=== PATIENT | male | born 1970 | race Two or more races ===

== ENCOUNTER 2017-01-29 11:38 | Emergency (ER) | payer OTHER, SELFPAY ==
[~2017-01-29] VITALS: Ht 170.2 cm; Wt 78.3 kg
[2017-01-29] MEDS ORDERED: MORPHINE SULFATE 4 MG/ML, 1ML ONE (12:46)
[2017-01-29] MEDS ORDERED: ONDANSETRON 2MG/ML, 2ML ONE (12:47)
[2017-01-29] MEDS ORDERED: KETOROLAC 30 MG/1 ML ONE (12:47)
[2017-01-29] MEDS ORDERED: SODIUM CHLORIDE FLUSH 10ML SYR IVF ONE (13:00)
[2017-01-29] MEDS ORDERED: MORPHINE SULFATE 4 MG/ML, 1ML IVPush PRN (13:00)
[2017-01-29] MEDS ORDERED: SODIUM CHLORIDE 0.9% 1,000ML IVBOLUS ONE (13:00)
[2017-01-29] MEDS ORDERED: KETOROLAC 30 MG/1 ML IVPush ONE (13:00)
[2017-01-29] MEDS ORDERED: ONDANSETRON 2MG/ML, 2ML IVPush ONE (13:00)
[2017-01-29 13:02] LABS: ASPARTATE AMINO TRANSFERASE 11 U/L (15-37); BLOOD UREA NITROGEN 19 mg/dL (7-18)
[2017-01-29 14:15] LABS: PATH.CAST-FLAG NOT PRESENT; SPERM-FLAG NOT PRESENT; SRC-FLAG NOT PRESENT; XTAL-FLAG NOT PRESENT; YLC-FLAG NOT PRESENT
[2017-01-29 15:48] VITALS: BP 107/67
== END 2017-01-29 15:50 | disposition home or self-care (01) ==
LOC: ED 15:00
DX: R10.84 Generalized abdominal pain (principal)
CPT/HCPCS: 36415; 74176; 80053; 81001; 83690; 85025; 96361; 96374; 96375; 99285; J1885; J2405; J7030

== ENCOUNTER → 2018-12-10 | Outpatient (CLI) | payer OTHER ==
[~2018-12-10] MED LIST: MELO15TA24 PO; TIZA4TAB PO
[2018-12-10 09:37] LABS: BASOPHILS # (AUTO) 0.02 x10^3/uL (0-0.1); BASOPHILS % (AUTO) 1 % (0-1); EOSINOPHILS # (AUTO) 0.26 x10^3/uL (0-0.4); EOSINOPHILS % (AUTO) 7 % (1-7); LYMPHOCYTES % (AUTO) 8 % (22-44); MD NO; MEAN CORPUSCULAR HEMOGLOBIN 31.6 pg (27.5-34.5); MEAN CORPUSCULAR HGB CONC 34.8 g/dL (33.2-36.2); MEAN CORPUSCULAR VOLUME 90.9 fL (81-97); MEAN PLATELET VOLUME 7.3 fL (7.4-10.4); MONOCYTES % (AUTO) 5 % (2-9); NEUTROPHILS # (AUTO) 2.98 x10^3/uL (1.8-6.8); NEUTROPHILS % (AUTO) 80 % (42-75); PLATELET COUNT 181 x10^3/uL (130-400); RED BLOOD COUNT 4.86 x10^6/uL (4.38-5.82); RED CELL DISTRIBUTION WIDTH 12.4 % (9.4-14.8)
[2018-12-10 09:47] LABS: INTERNATIONAL NORMALIZED RATIO 0.96 (0.93-1.1); PROTHROMBIN TIME 10.1 Seconds (9.6-11.5)
[2018-12-10 09:49] LABS: ANION GAP 4 mmol/L (5-15); CHLORIDE 109 mmol/L (98-107); CREATININE 0.97 mg/dL (0.7-1.3)
== END | disposition home or self-care (01) ==
LOC: STAR 08:35
PROVIDERS: ATTEND Neurological Surgery
DX: Z01.818 Encounter for other preprocedural examination (principal); M51.26 Other intervertebral disc displacement, lumbar region; M48.061 Spinal stenosis, lumbar region without neurogenic claudication; M51.36 Other intervertebral disc degeneration, lumbar region
CPT/HCPCS: 36415; 71046; 72110; 80048; 85025; 85610; 85730; 93005

== ENCOUNTER 2018-12-17 08:38 | Inpatient (IN) | payer OTHER ==
[~2018-12-17] VITALS: Ht 170.2 cm; Wt 82.5 kg
[~2018-12-17 08:38] MED LIST changes: +BACITRACIN 50,000 UNIT ONE; +BACITRACIN OINT 500U/GM, 15 GM ONE; +BUPIVACAINE/PF-EPI 0.5% 1:200K ONE; +THROMBIN 20,000 UNIT VIAL TP ONE
[2018-12-17] MEDS ORDERED: LACTATED RINGERS 1,000 ML IV SCH (13:01)
[2018-12-17 13:02] VITALS: BP 125/84
[2018-12-17] MEDS ORDERED: THROMBIN 5,000 UNIT VIAL TP ONE (13:37)
[2018-12-17] MEDS ORDERED: CALCIUM CHLORIDE 10%, 10ML SYR ONE (13:37)
[2018-12-17] MEDS ORDERED: MIDAZOLAM 1 MG/ML, 2ML ONE (14:12)
[2018-12-17] MEDS ORDERED: FENTANYL PF 250 MCG/5ML ONE (14:12)
[2018-12-17] MEDS ORDERED: ONDANSETRON 2MG/ML, 2ML ONE (14:58)
[2018-12-17] MEDS ORDERED: GABAPENTIN 300 MG CAPSULE PO ONE ×2 (15:00→15:30)
[2018-12-17] MEDS ORDERED: FAMOTIDINE 20 MG TABLET PO ONE (15:00)
[2018-12-17] MEDS ORDERED: ACETAMINOPHEN 500 MG TABLET PO ONE (15:00)
[2018-12-17] MEDS ORDERED: OxyconTIN ER 20 MG TAB.ER PO ONE (15:00)
[2018-12-17] MEDS ORDERED: DEXAMETHASONE 4 MG/ML, 1ML ONE (15:05)
[2018-12-17] MEDS ORDERED: CEFAZOLIN 1,000 MG ONE ×2 (15:06)
[2018-12-17] MEDS ORDERED: PROMETHAZINE 25 MG/ML, 1ML IV PRN (16:30)
[2018-12-17] MEDS ORDERED: OXYcodone 5 MG/5 ML ORAL.SOL UDC PO PRN (16:30)
[2018-12-17] MEDS ORDERED: MEPERIDINE/PF 25MG/0.5ML IVPush PRN (16:30)
[2018-12-17] MEDS ORDERED: hydrALAzine 20 MG/ML, 1ML IV PRN (16:30)
[2018-12-17] MEDS ORDERED: ONDANSETRON 2MG/ML, 2ML IV PRN ×2 (16:30→20:30)
[2018-12-17] MEDS ORDERED: LABETALOL 5MG/ML, 20ML IV PRN (16:30)
[2018-12-17] MEDS ORDERED: SUCCINYLCHOLINE 20 MG/ML, 10ML ONE (16:44)
[2018-12-17] MEDS ORDERED: PROPOFOL 10 MG/ML, 20ML ONE (16:44)
[2018-12-17] MEDS ORDERED: ROCURONIUM 10MG/ML,5ML ONE (16:44)
[2018-12-17] MEDS ORDERED: FENTANYL PF 100 MCG/2ML ONE ×2 (17:31→17:59)
[2018-12-17] MEDS ORDERED: HYDROmorphone 2 MG/ML, 1ML ONE (17:31)
[2018-12-17] MEDS: FENTANYL PF 100 MCG/2ML IV PRN ×4 (17:33→18:12)
[2018-12-17] MEDS: HYDROmorphone 2 MG/ML, 1ML IVPush PRN ×4 (17:37→18:07)
[2018-12-17 19:42] VITALS: BP 114/69
[2018-12-17] MEDS ORDERED: HYDROcodone/APAP 5/325 TABLET PO PRN (20:30)
[2018-12-17] MEDS ORDERED: DIPHENHYDRAMINE 50 MG/ML, 1ML IM PRN (20:30)
[2018-12-17] MEDS ORDERED: CYCLOBENZAPRINE 10 MG TABLET PO PRN (20:30)
[2018-12-17] MEDS ORDERED: DIPHENHYDRAMINE 50 MG/ML, 1ML IVPush PRN (20:30)
[2018-12-17] MEDS ORDERED: METHOCARBAMOL 750 MG TABLET PO PRN (20:30)
[2018-12-17] MEDS ORDERED: BISACODYL 10 MG SUPP PR PRN (20:30)
[2018-12-17] MEDS ORDERED: HYDROmorphone 2 MG/ML, 1ML IM PRN (20:30)
[2018-12-17] MEDS ORDERED: MAGNESIUM HYDROXIDE 8%, 30ML UDC PO PRN (20:30)
[2018-12-17] MEDS ORDERED: DIPHENHYDRAMINE 50 MG CAPSULE PO PRN (20:30)
[2018-12-17] MEDS ORDERED: METHOCARBAMOL 1,000 MG in DEXTROSE 5% 100 ML IV ONE (20:30)
[2018-12-17] MEDS ORDERED: PROMETHAZINE 25 MG/ML, 1ML IM PRN (20:30)
[2018-12-17] MEDS: NS + 20MEQ KCL 1,000 ML IV SCH (20:49)
[2018-12-17] MEDS: HYDROcodone/APAP 10/325 MG TABLET PO PRN (20:57)
[2018-12-17] MEDS ORDERED: ZOLPIDEM 5MG TABLET PO PRN (21:00)
[2018-12-17 21:11] VITALS: BP 125/79
[2018-12-17] MEDS: CEFAZOLIN PMX 1GM/50ML 50 ML IVPB SCH (23:14)
[2018-12-17 23:51] VITALS: BP 105/65
[2018-12-18 03:29] VITALS: BP 102/59
[2018-12-18] MEDS: METHOCARBAMOL 750 MG in DEXTROSE 5% 100 ML IV SCH ×3 (04:11→20:43)
[2018-12-18] MEDS: HYDROcodone/APAP 10/325 MG TABLET PO PRN ×4 (04:18→17:28)
[2018-12-18 06:06] LABS: ALBUMIN 3.4 g/dL (3.4-5.0); ANION GAP 6 mmol/L (5-15); CALCIUM 8.2 mg/dL (8.5-10.1); CHLORIDE 107 mmol/L (98-107); CREATININE 1.06 mg/dL (0.7-1.3)
[2018-12-18] MEDS: CEFAZOLIN PMX 1GM/50ML 50 ML IVPB SCH (06:44)
[2018-12-18] MEDS ORDERED: LACTATED RINGERS 1,000 ML IV SCH (08:27)
[2018-12-18 08:47] VITALS: BP 116/71
[2018-12-18] MEDS: SENNA/DOCUSATE TABLET PO SCH (08:55)
[2018-12-18] MEDS: NS + 20MEQ KCL 1,000 ML IV SCH ×2 (09:00→20:36)
[2018-12-18] MEDS: MAGNESIUM HYDROXIDE 8%, 30ML UDC PO SCH (10:00)
[2018-12-18 14:35] VITALS: BP 111/70
[2018-12-18] MEDS ORDERED: KETOROLAC 30 MG/1 ML IVPush ONE (18:30)
[2018-12-18 19:01] VITALS: BP 112/67
[2018-12-18] MEDS: HYDROmorphone 2MG TABLET PO PRN (21:36)
[2018-12-19] MEDS: HYDROmorphone 2MG TABLET PO PRN ×6 (01:30→22:56)
[2018-12-19 02:44] VITALS: BP 113/63
[2018-12-19] MEDS: METHOCARBAMOL 750 MG in DEXTROSE 5% 100 ML IV SCH ×3 (04:31→20:27)
[2018-12-19] MEDS ORDERED: KETOROLAC 30 MG/1 ML IVPush ONE (06:30)
[2018-12-19 08:33] VITALS: BP 111/71
[2018-12-19] MEDS: NS + 20MEQ KCL 1,000 ML IV SCH ×2 (08:39→20:23)
[2018-12-19] MEDS: MAGNESIUM HYDROXIDE 8%, 30ML UDC PO SCH (09:00)
[2018-12-19] MEDS: SENNA/DOCUSATE TABLET PO SCH (09:00)
[2018-12-19 14:59] VITALS: BP 119/75
[2018-12-19 19:07] VITALS: BP 124/81
[2018-12-20 00:55] VITALS: BP 111/70
[2018-12-20] MEDS: HYDROmorphone 2MG TABLET PO PRN ×5 (04:23→20:35)
[2018-12-20] MEDS: METHOCARBAMOL 750 MG TABLET PO SCH ×3 (04:23→20:35)
[2018-12-20 08:27] VITALS: BP 117/65
[2018-12-20] MEDS: NS + 20MEQ KCL 1,000 ML IV SCH ×2 (08:30→20:36)
[2018-12-20] MEDS: SENNA/DOCUSATE TABLET PO SCH (08:30)
[2018-12-20] MEDS: MAGNESIUM HYDROXIDE 8%, 30ML UDC PO SCH (08:31)
[2018-12-20] MEDS: ENOXAPARIN 40 MG/0.4 ML SQ SCH (12:19)
[2018-12-20 12:58] VITALS: BP 121/76
[2018-12-20] MEDS ORDERED: METH750T87 PO (17:50)
[2018-12-20] MEDS ORDERED: HYDR2TAB29 PO (17:50)
[2018-12-20 20:28] VITALS: BP 134/78
[2018-12-21 01:23] VITALS: BP 116/72
[2018-12-21] MEDS: METHOCARBAMOL 750 MG TABLET PO SCH ×3 (04:32→20:17)
[2018-12-21] MEDS: HYDROmorphone 2MG TABLET PO PRN ×4 (04:32→20:56)
[2018-12-21 08:00] VITALS: BP 110/59
[2018-12-21] MEDS: MAGNESIUM HYDROXIDE 8%, 30ML UDC PO SCH (08:22)
[2018-12-21] MEDS: SENNA/DOCUSATE TABLET PO SCH (08:22)
[2018-12-21] MEDS: NS + 20MEQ KCL 1,000 ML IV SCH ×2 (08:22→20:17)
[2018-12-21] MEDS: ENOXAPARIN 40 MG/0.4 ML SQ SCH (11:23)
[2018-12-21 13:56] VITALS: BP_SYST 101; BP_SYST 95; BP_DIAS 49; BP_DIAS 50
[2018-12-21 18:58] VITALS: BP 123/78
[2018-12-22] MEDS: HYDROmorphone 2MG TABLET PO PRN ×3 (01:03→11:29)
[2018-12-22 01:15] VITALS: BP 119/76
[2018-12-22] MEDS: METHOCARBAMOL 750 MG TABLET PO SCH ×2 (04:15→11:57)
[2018-12-22 05:07] LABS: CREATININE 0.91 mg/dL (0.7-1.3)
[2018-12-22 07:21] VITALS: BP 112/72
[2018-12-22] MEDS: SENNA/DOCUSATE TABLET PO SCH (07:52)
[2018-12-22] MEDS: MAGNESIUM HYDROXIDE 8%, 30ML UDC PO SCH (07:52)
[2018-12-22] MEDS: NS + 20MEQ KCL 1,000 ML IV SCH (09:19)
[2018-12-22] MEDS: ENOXAPARIN 40 MG/0.4 ML SQ SCH (11:29)
[2018-12-22 13:10] VITALS: BP 113/71
== END 2018-12-22 14:20 | disposition home health service (06) | DRG 460 ==
LOC: ORIP 11:56 → 4NOR 19:07 → DCLOUNGE 12-22 13:50
PROVIDERS: ADMIT Neurological Surgery; ATTEND Neurological Surgery
PROC: 0SG0071 Fusion of Lumbar Vertebral Joint with Autologous Tissue Substitute, Posterior Approach, Posterior Column, Open Approach (ICD-10-PCS; 2018-12-17)
PROC: 0SG3071 Fusion of Lumbosacral Joint with Autologous Tissue Substitute, Posterior Approach, Posterior Column, Open Approach (ICD-10-PCS; 2018-12-17)
PROC: 4A11X4G Monitoring of Peripheral Nervous Electrical Activity, Intraoperative, External Approach (ICD-10-PCS; 2018-12-17)
PROC: 07DR3ZZ Extraction of Iliac Bone Marrow, Percutaneous Approach (ICD-10-PCS; 2018-12-17)
PROC: 0SB20ZZ Excision of Lumbar Vertebral Disc, Open Approach (ICD-10-PCS; principal; 2018-12-17 14:00)
DX: M51.17 Intervertebral disc disorders with radiculopathy, lumbosacral region (principal); M48.07 Spinal stenosis, lumbosacral region; M21.379 Foot drop, unspecified foot; G89.29 Other chronic pain; Z60.2 Problems related to living alone
CPT/HCPCS: 36415; 72100; 80048; 82040; 82565; G0378; J0690; J1100; J1170; J1650; J1885; J2250; J2405; J2704; J3010; J3480; C1763; J0330; J2800; J7120